=== PATIENT | female | born 1985 | race Caucasian/White ===

== ENCOUNTER 2018-09-20 09:36 | Emergency (ER) | payer BC ==
--- NOTE | 2018-09-20 11:07 | EDM.PDOC ---
ED HPI GENERAL MEDICAL PROBLEM - General Chief Complaint: Cardiovascular Problem Stated Complaint: FEVER,DIZZY,RACING HEARTBEAT Time Seen by Provider: 09/20/18 10:00 Source of Information: Reports: Patient History Limitations: Reports: No Limitations - History of Present Illness INITIAL COMMENTS - FREE TEXT/NARRATIVE: patient is a very pleasant 32-year-old female who presents today with concern for feeling "funny" at times. She states that approximately a month ago while driving she; dizzy, she was in the car 2 of her children so she slowed way down and the episode resolved. She states this lasted about 5 seconds. One week later she noted feeling, dizzy while she was in the kitchen, her daughter brought her some cold water and she drank it and felt better. she then felt fine up until this morning when she suddenly felt dizzy and like the world was unsteady just for a moment. No spinning sensation. did not fall. Slightly chilled all over. It resolves, but when it happened again and she came to the emergency room. Her symptoms are completely resolved now. 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 Smokes approximately three quarters pack per day and drinks alcohol socially, had 3 beers last night. Caffeine consumption includes 2 cups of tea per day and a small amount of pop. She does no regular exercise other than being with her 4 children. No history of diabetes, heart problems, hypertension, or any other difficulties. She had borderline gestational diabetes with her first but none after that. she has never had anything like this happen before. She played sports all through high school and has been very active in general with never any symptoms of syncope or dizziness , chest pain or shortness of breath. - Related Data Allergies Allergy/AdvReac Type Severity Reaction Status Date / Time No Known Allergies Allergy Verified 09/20/18 10:17 Home Meds: Home Meds . 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 ED EXAM, GENERAL - Physical Exam Exam: See Below Free Text/Narrative:: general: Alert, very pleasant no acute distress. Throat is without erythema, mucous members moist, pupils equal and reactive, facial muscles equal bilaterally. heart is regular rate and rhythm, I do not hear a murmur either supine or seated. lungs are clear with no wheezes or crackles she has good air movement. Abdomen soft nontender, peripheral pulses +2 in both the upper and lower extremities and there is no lower extremity edema. Skin is without any lesions or rashes. Muscle strength equal side to side and gait is normal EKG INTERPRETATION Rhythm: NSR [place]: Normal P-Wave: Present QRS: Normal ST-T: Normal QT: Normal Course - Vital Signs Text/Narrative:: initial evaluation completed, symptoms consistent with pre-syncope vs palpapitations. Patient with extensive exercise history and no family history of arrhythmias, and has never had symptoms while exercising. will get basic labs, orthostatics. EKG unremarkable. Last Recorded V/S: Last Vital Signs Temp 36.8 C 09/20/18 09:36 Pulse 77 09/20/18 09:36 Resp 18 09/20/18 09:36 BP 148/92 H 09/20/18 09:36 Pulse Ox 100 09/20/18 09:36 - Orders/Labs/Meds Labs: Laboratory Tests 09/20/18 09/20/18 Range/Units 11:00 11:00 WBC 8.9 (4.5-12.0) X10-3/uL RBC 4.48 (3.23-5.20) x10(6)uL Hgb 14.5 (11.5-15.5) g/dL Hct 41.8 (30.0-51.3) % MCV 93.3 (80-96) fL MCH 32.4 (27.7-33.6) pg MCHC 34.7 (32.2-35.4) g/dL RDW 13.1 (11.5-15.5) % Plt Count 282 (125-369) X10(3)uL MPV 8.0 (7.4-10.4) fL Neut % (Auto) 56.7 (46-82) % Lymph % (Auto) 33.5 (13-37) % [place] % (Auto) 7.5 (4-12) % Eos % (Auto) 2 (1.0-5.0) % Baso % (Auto) 1 (0-2) % Neut # (Auto) 5.0 (1.6-8.3) # Lymph # (Auto) 3.0 (0.6-5.0) # [place] # (Auto) 0.7 (0.0-1.3) # Eos # (Auto) 0.2 (0.0-0.8) # Baso # (Auto) 0.0 (0.0-0.2) # Sodium 140 (135-145) mmol/L Potassium 5.0 (3.5-5.3) mmol/L Chloride 105 (100-110) mmol/L Carbon Dioxide 30 (21-32) mmol/L BUN 15 (7-18) mg/dL Creatinine 0.9 (0.55-1.02) mg/dL Est Cr Clr Drug Dosing 73.55 mL/min Estimated GFR (MDRD) > 60 (>60) BUN/Creatinine Ratio 16.7 (9-20) Glucose 91 (80-116) mg/dL Calcium 9.7 (8.6-10.2) mg/dL - Re-Assessments/Exams Free Text/Narrative Re-Assessment/Exam: 09/20/18 11:10 labs negative, orthostatics reviewed, also unremarkable. Discussed with patient PCP followup for event monitor to see if having cardiac arrhythmias vs just feeling of palpitations. all questions answered, see discharge appointment for 2pm today Departure - Departure Time of Disposition: 11:38 Disposition: Home, Self-Care 01 Condition: Good Clinical Impression: Palpitations Instructions: Palpitations, [id number], Steps to Quit Smoking Referrals: Danielle Rees CNM [Primary Care Provider] - Forms: ED Department Discharge Additional Instructions: recommend followup with PCP for event monitor - this is a wearable heart monitor that you can hit a button when you feel funny and it records what your heart is doing increase daily water intake careful with caffeine recommend quitting smoking ;) but I wasn't going to say anything Take very good care,
== END 2018-09-20 12:00 | disposition home or self-care (01) ==
LOC: FB.ED 09:36
DX: R00.2 Palpitations (principal); F17.210 Nicotine dependence, cigarettes, uncomplicated; Z79.3 Long term (current) use of hormonal contraceptives
CPT/HCPCS: 36415; 80048; 85025; 99284-25